=== PATIENT | male | born 1945 | race Caucasian/White ===

== ENCOUNTER 2023-07-19 14:03 | Emergency (ER) | payer MEDICARE, BC ==
[~2023-07-19] VITALS: Ht 175.3 cm; Wt 100.0 kg
[2023-07-19 14:08] VITALS: BP 129/65; PULSE 92; RESP 16; TEMP 98; O2SAT 97
== END 2023-07-19 14:35 | disposition left against medical advice (07) ==
LOC: ER 14:03
DX: R00.2 Palpitations (principal); Z53.21 Procedure and treatment not carried out due to patient leaving prior to being seen by health care provider
CPT/HCPCS: 71045; 93005; 99281